=== PATIENT | male | born 1940 | race Caucasian/White ===

== ENCOUNTER 2024-08-18 08:48 | Emergency (ER) | payer MEDICARE, SELFPAY ==
[2024-08-18 08:53] VITALS: BP 120/81
--- NOTE | 2024-08-18 09:03 | ED.GENMED ---
History of Present Illness
General
Chief Complaint: Weakness
Source: patient
Exam Limitations: none
Time Seen by Provider: 08/18/24 09:01
Nursing documentation reviewed up to this point in time: agreed with
History of Present Illness
History of Present Illness:
83-year-old male with past medical history of bladder cancer with urostomy in place, hyperlipidemia, presents to the emergency department today with concerns of decreased appetite and weakness for the past 4 days. Patient reports that he was
feeling okay last week and is normally very active person but then he started to notice on Thursday that he felt very fatigued and was not as active as usual. He also notes that he felt no desire to eat and thought that he may have lost weight this
week because of it. Patient also notes intermittent subjective fevers and chills, he checked his temperature yesterday and noticed that it was 100.0 F. He also notes a dry cough. He denies chest pain, shortness of breath, sinus congestion,
headaches, abdominal pain, nausea or vomiting, diarrhea or constipation. Of note, patient had a transurethral resection of the bladder in 2018 and when he first had this placed, he got frequent urinary tract infections. He still follows with
oncology, prior patient of Dr. Dobbs. Patient states that he has had urinary tract infections with a urostomy and ileal conduit in the past and states that usually the only symptom he gets his fevers. Patient states that he does not feel as
though he has an infection. Patient denies flank pain.
Past History
Past History
ED Past Medical History: Cancer (Bladder cancer) and Hypercholesterolemia; Negative Asthma, HTN or NIDDM
ED Past Surgical History: Appendectomy and Urological (urostomy)
Social History
Tobacco: Former smoker
Alcohol: None
Drug: None
Personal:
Living: with family
Employment: Retired
Family History
Family History: Other (Noncontributory)
Review of Systems
Review of Systems
All Other Systems: ROS reviewed and negative except as documented in HPI and ROS
Phy Exam
Physical Exam
Physical Exam:
General: Patient is well appearing and in no acute distress; non-toxic
Skin: Warm and dry, no rashes or lesions
Head: Normocephalic, atraumatic
Eyes: Sclera non-icteric. EOMs intact. PERRLA.
Cardiac: Regular rate and rhythm, no murmurs
Pulm: Normal respiratory effort, no wheezes, rales, rhonchi
Abdomen: Urostomy site draining and appears intact with no signs of infection. No abdominal tenderness to palpation, no CVA tenderness, no suprapubic tenderness.
Neuro: CN II-XII intact, no focal neurologic deficits.
Psychiatric: Appropriate mood and affect.
Course
Orders/Labs/Results
Orders:
Orders
08/18/24 09:17
IV Insert/Care/Rem.- Treatment PRN
08/18/24 09:46
COVID-19 Antigen Urgent
Source: Nasal Swab
Complete Blood Count/With Diff Urgent
Comprehensive Metabolic Panel Urgent
Lipase Urgent
Influenza A+B Rapid Molecular Urgent
PETE Source: Nasal Swab
Specimen Description:
08/18/24 10:45
0.9% Sodium Chloride 500 ml [Nss] 500 ml IV BOLUS
08/18/24 11:17
Urinalysis Reflex To Culture Urgent
Date Specimen was Collected: 08/18/24
Time Specimen was Collected: 11:14
Urine Microscopic Reflex Cult Urgent
Urine Culture Urgent
PETE Source: U
Specimen Description:
Date Specimen was Collected: 08/18/24
Time Specimen was Collected: 11:14
Abnormal Lab Results
08/18/24 08/18/24
09:46 11:17
RBC 2.98 L 10^6/uL
(4.70-6.10)
Hgb 9.3 L g/dL
(13.0-18.0)
Hct 26.6 L %
(39.0-52.0)
MCH 31.2 H pg
(27.0-31.0)
Absolute Neuts (auto) 8.0 H 10^3/uL
(1.4-6.5)
Absolute Lymphs (auto) 0.6 L 10^3/uL
(1.2-3.4)
Absolute Monos (auto) 0.7 H 10^3/uL
(0.1-0.6)
Neutrophils % 85.0 H %
(42.2-75.2)
Lymphocytes % 6.6 L %
(20.5-51.1)
BUN 32 H mg/dl
(9-20)
Creatinine 1.5 H mg/dL
(0.7-1.3)
Glucose 126 H mg/dl
(70-99)
Total Protein 5.8 L g/dl
(6.3-8.2)
Albumin 3.4 L g/dl
(3.5-5.0)
Urine Ketones Trace A
(Negative)
Ur Occult Blood Reflex 4+ A
(Negative)
Urine Nitrite (Reflex) Positive A
(Negative)
Leukocyte Esterase Rfl 2+ A
(Negative)
Urine RBC 7-10 A /HPF
(0-2)
Urine WBC (Reflex) 21-25 A /HPF
(0-5)
Urine Bacteria (Reflex) Moderate A
(Negative)
08/18/24 09:46
08/18/24 09:46
Vital Signs
Initial and Last Documented VS:
Initial Vital Signs
Temp Pulse Resp BP Pulse Ox
99.0 F 101 18 120/81 97
08/18/24 08:53 08/18/24 08:53 08/18/24 08:53 08/18/24 08:53 08/18/24 08:53
Last Documented Vital Signs
Temp Pulse Resp BP Pulse Ox
98.5 F 69 19 112/74 96
08/18/24 10:07 08/18/24 12:45 08/18/24 12:45 08/18/24 12:00 08/18/24 12:45
MDM/Problems Addressed
Differential Diagnosis Includes:
ddx include influenza, COVID-19, anemia, urinary tract infection, choledocholithiasis, viral syndrome
MDM/Problems Addressed:
83-year-old male with past medical history of bladder cancer with urostomy in place, hyperlipidemia, presents to the emergency department today with concerns of decreased appetite and weakness for the past 4 days. Patient reports that he was
feeling okay last week and is normally very active person but then he started to notice on Thursday that he felt very fatigued and was not as active as usual. He denies abdominal pain, chest pain, shortness of breath, nausea, vomiting. Patient does
note that he had a low-grade fever at home of 100. He notes subjective fevers and chills. Patient states that he used to get urinary tract infections more frequently with his urostomy and he has antibiotics at home from his urologist to take as
needed. Here in the ER, patient is well appearing, in no acute distress, he has no abdominal tenderness to palpation, his ostomy site is intact. His cbc is unremarkable, his cmp shows elevated BUN:creatinine ratio, did give 500 bag of fluids, on
reassessment patient states that he feels slightly better but still weak and intermittent chills. Considering patient's negative workup in the emergency department and his hx of fevers as his only UTI sign in the past, will treat prophylaxtically
with antibiotic. Reviewed previous urine cultures, reviewed previous H+P from Dr. Dobbs, will start on Bactrim.
Chronic conditions affecting care:
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
Acute Exacerbation and/or Progression of Chronic Illness:
n/a
*Pulse Oximetry
Patient hypoxic: no
*Critical Care Note
Total Time (30-mins, 75-104mins- exclusive of procedures): Not Applicable
Data Reviewed
Review of Other/Old Records Reveals: Labs (reviewed prior urine cultures, reviewed susceptibilities ), Records (Reviewed previous ER physician documentation from 07/17/2020 where patient was seen for UTI, was febrile upon presentation to the
emergency department ) and Other (Reviewed reviewed history and physical from 03/02/[address] Dobbs, reviewed history and physical from Dr. Ryan from 09/28/2018, reviewed med list, patient has tolerated Bactrim and ciprofloxacin in the past
for UTIs)
Source: patient and records
Prescriptions/Medications Considered But Not Given:
n/a
Further Testing Considered But Not Given:
n/a
Patient Management
Escalation/DeEscalation of care consider admission/obs:
Admit not indicated, reviewed case and treatment plan with my attending physician who also evaluated patient
ED Attending Note
-
Portions of this chart may have been created with voice recognition software.� Occasional wrong word or��sound alike� substitutions may have occurred due to the inherent limitations of voice recognition software.
Discharge Plan
Departure
Patient Disposition: Home (Routine Discharge)
Date of Disposition: 08/18/24
Time of Disposition: 12:39
Patient with high blood pressure during this ER visit?: Yes
Condition: Good
Discharge Problem:
Decreased appetite, Weakness generalized
Instructions: Urinary Tract Infection, Adult ED, Weakness ED, BLOOD PRESSURE
Prescriptions:
New
sulfamethoxazole-trimethoprim [Bactrim DS] 800-160 mg tablet
1 tab PO BID 5 Days Qty: 10 0RF
No Action
cyanocobalamin (vitamin B-12) 1,000 MCG tablet
1,000 mcg PO DAILY
diphenhydramine-acetaminophen 1 EACH tablet
2 tab PO HS
[facility] [employer] 1 EACH tablet
1 tab PO DAILY
Patient Comments:
simvastatin 20 MG tablet
20 mg PO QPM
multivitamin with folic acid [Tab-A-Tyrone] 1 TABLET tablet
1 tab PO DAILY
acetaminophen 325 MG tablet
650 mg PO Q4HPRN PRN (Reason: mild pain/ fever>100.5F) 0RF
Motrin 100 MG tablet
100 mg PO DAILY
Referrals:
Jeramie Taylor DO [Family Provider] -
Activity Restrictions/Additional Instructions:
Based on review of your previous urine cultures, Bactrim has been sent to your pharmacy.
You will receive a call regarding the results of your urine culture.
Please return to the emergency department if you experience fevers, rigors, nausea or vomiting, abdominal pain, chest pain, shortness of breath, or any other signs or symptoms concerning to you.
Please follow up with your PCP and your oncologist.
Interventions
Interventions:
*Risk Screen - Suicide Last Done: 08/18/24 08:53
*General Assessment Last Done: 08/18/24 08:53
*Neglect/Abuse Screening Last Done: 08/18/24 08:53
ED- Fall Risk Assessment Last Done: 08/18/24 10:07
*ED COVID-19 Vaccine History Last Done: 08/18/24 08:53
*Nursing Disposition Last Done: 08/18/24 13:07
ED- Cardiac Assessment Last Done: 08/18/24 10:07
ED- Neurological Assessment Last Done: 08/18/24 10:07
ED- Pulmonary Assessment Last Done: 08/18/24 10:07
Discharge Date and Time
Discharge Date/Time: 08/18/24 13:08
Print Language: INDONESIAN
[2024-08-18 10:00] VITALS: BP 109/64
[2024-08-18 10:07] VITALS: BP 136/71
[2024-08-18 10:08] LABS: % Basophils 0.2 % (0-2); % Eosinophils 0.1 % (0-6); % Immature Granulocytes 0.4 % (0-0.5); % Lymphocytes 6.6 % (20.5-51.1); % Monocytes 7.7 % (1.7-9.3); Absolute Lymphocytes 0.6 10^3/uL (1.2-3.4); Absolute Monocytes 0.7 10^3/uL (0.1-0.6); Hematocrit 26.6 % (39.0-52.0); Hemoglobin 9.3 g/dL (13.0-18.0); Mean Corpuscular Hgb 31.2 pg (27.0-31.0); Mean Corpuscular Volume 89.3 fL (80.0-94.0); Mean Platelet Volume 10.3 fL (7.4-10.4); Nucleated Red Blood Cells % 0 % (-); Platelet Count 226 10^3/uL (130-400); Red Blood Cell Count 2.98 10^6/uL (4.70-6.10); Red Cell Dist. Width 14.2 % (11.5-14.5); White Blood Cell Count 9.5 10^3/uL (4.8-10.8)
[2024-08-18 10:12] LABS: COVID-19 Antigen Negative (Negative)
[2024-08-18 10:18] LABS: ALT (SGPT) 17 U/L (0-50); AST (SGOT) 19 U/L (17-59); Albumin 3.4 g/dl (3.5-5.0); Alkaline Phosphatase 57 U/L (38-126); Blood Urea Nitrogen 32 mg/dl (9-20); Calcium 9.2 mg/dl (8.4-10.2); Carbon Dioxide 22 mmol/L (22-30); Chloride 102 mmol/L (98-107); Glucose 126 mg/dl (70-99); Lipase 47 U/L (23-300); Potassium 4.2 mmol/L (3.5-5.1); Sodium 136 mmol/L (135-145); Total Bilirubin 0.9 mg/dl (0.2-1.3); eGFR 46.48
[2024-08-18 10:30] LABS: Total Protein 5.8 g/dl (6.3-8.2)
--- NOTE | 2024-08-18 10:31 | EDRN ---
the pt is resting in stretcher in the lowest position, side rails up x2, call quevedo within reach, HOB elevated, no s/s of distress, VS WNL, the pt denies needing anything at this time, awaiting for provider to come back to the pts bedside, will
continue to monitor the pt closely
--- NOTE | 2024-08-18 10:58 | EDRN ---
Whitney REYES at the pts bedside
[2024-08-18 11:00] VITALS: BP 103/82
[2024-08-18] MEDS: NSS 500 IV (11:16)
--- NOTE | 2024-08-18 11:17 | EDRN ---
Dr. Dodge currently at the pts bedside
[2024-08-18 12:00] VITALS: BP 112/74
[2024-08-18 13:08] LABS: Urine Albumin Trace (Neg - Trace); Urine Bilirubin Negative (Negative); Urine Character Slightly Cloudy (Clear); Urine Color Yellow; Urine Glucose Negative (Negative); Urine Ketone Trace (Negative); Urine Leukocyte 2+ (Negative); Urine Nitrite Positive (Negative); Urine Occult Blood 4+ (Negative); Urine Specific Gravity 1.015 (<1.030); Urine Urobilinogen Negative (Neg - 1+)
[2024-08-18 13:21] LABS: Urine Bacteria Moderate (Negative); Urine White Cell 21-25 /HPF (0-5)
== END 2024-08-18 13:08 | disposition home or self-care (01) ==
LOC: EMR 08:48
PROVIDERS: Physician Assistant; EMERGENCY PHYSICIAN Emergency Medicine; FAMILY PHYSICIAN Family Medicine
DX: R53.1 Weakness (principal); R63.8 Other symptoms and signs concerning food and fluid intake; E78.00 Pure hypercholesterolemia, unspecified; Z87.891 Personal history of nicotine dependence; Z90.49 Acquired absence of other specified parts of digestive tract; Z85.51 Personal history of malignant neoplasm of bladder; Z93.6 Other artificial openings of urinary tract status
CPT/HCPCS: 96360; 99284; 80053; 81003; 81015; 83690; 85025; 87077; 87086; 87186; 87502; 87811

== ENCOUNTER → 2024-09-05 07:26 | Outpatient (REF) | payer MEDICARE, SELFPAY | LOC: HWRAD 07:26 | PROVIDERS: ATTENDING PHYSICIAN Internal Medicine Hematology & Oncology; FAMILY PHYSICIAN Family Medicine | DX: C67.8 Malignant neoplasm of overlapping sites of bladder (principal) | CPT/HCPCS: 74178; Q9967 ==